=== PATIENT | male | born 1970 | race Two or more races ===

== ENCOUNTER 2025-04-25 13:41 | Inpatient (IN) | payer MEDICAID, OTHER ==
[~2025-04-25] VITALS: Ht 160 cm; Wt 76.4 kg
[2025-04-25] MEDS: ACETAMINOPHEN 325 MG TAB PO ONE ×2 (14:01→21:20)
--- NOTE | 2025-04-25 14:19 | ED.PDOC ---
History of Present Illness HPI Comments Patient is a 64-year-old male with no significant past medical history presented to the ED with a chief complaint of pain on urination. Patient reported that since the last 3-4 days he has been having chills and fever with body aches, burning pain urination but denies any hematuria. Patient reports that for the last about 1 year he has been having symptoms hesitancy, urgency, nocturia. Patient also reported of swelling in his right testicle which is painless. Patient denied nausea, vomiting, diarrhea and does not report of any cough or phlegm. He does report of having a kidney stone about 10 years ago. Chief Complaint: Urinary Time Seen by MD: 13:46 Allergies: Coded Allergies: NO KNOWN ALLERGIES (Unverified , 04/25/25) Past Medical History PAST MEDICAL HISTORY: Denies Surgical History: Denies all surgeries Family History Family History: Reviewed,noncontributory to illness, No family hx of Cancer, No family hx of DM, No family hx of Heart fern, No family hx of HTN, No family hx ofKidney fern, No family hx of Liver fern, No family hx of Lung fern, No family hx of Stroke Social History Smoker: Non-Smoker Alcohol: Other (Quit 2 months ago was a heavy alcoholic with 12 pack beer every day) Drugs: Denies Drug Use Lives In: Home Constitutional: reports: chills, fever, malaise, weakness EENTM: denies: blurred vision, double vision, ear bleeding, ear discharge, ear drainage, ear pain, ear ringing, eye pain, eye redness, hearing loss, mouth pain, mouth swelling, nasal discharge, nose bleeding, nose congestion, nose pain, photophobia, tearing, throat pain, throat swelling, voice changes, others Respiratory: denies: cough, hemoptysis, orthopnea, SOB at rest, shortness of breath, SOB with excertion, stridor, wheezing, others Cardiovascular: denies: chest pain, dizzy spells, diaphoresis, Dyspnea on exertion, edema, irregular heart beat, left arm pain, lightheadedness, palpitations, PND, syncope, others Gastrointestinal: denies: abdomen distended, abdominal pain, blood streaked bowels, constipated, diarrhea, dysphagia, difficulty swallowing, hematemesis, melena, nausea, poor appetite, poor fluid intake, rectal bleeding, rectal pain, vomiting, others Genitourinary: reports: burning, dysuria, frequency, testicle swelling, urgency Neurological: denies: dizziness, fainting, headache, left sided numbness, left sided weakness, numbness, paresthesia, pre-existing deficit, right sided numbness, right sided weakness, seizure, speech problems, tingling, tremors, weakness, others Musculoskeletal: reports: back pain Integumetry: denies: bruises, change in color, change in hair/nails, dryness, laceration, lesions, lumps, rash, wounds, others Allergic/Immunocompromised: denies: Difficulty Healing, Frequent Infections, Hives, Itching, others Hematologic/Lymphatic: denies: anemia, blood clots, easy bleeding, easy bruising, swollen glands, others Endocrine: denies: excessive hunger, excessive sweating, excessive thirst, excessive urination, flushing, intolerance to cold, intolerance to heat, unexplained weight gain, unexplained weight loss, others Psychiatric: denies: anxiety, bipolar disorder, depression, hopeless, panic disorder, schizophrenia, sleepless, suicidal, others Physical Exam General Appearance: Mild Distress HEENT: Normal ENT Inspection, Pharynx Normal, TMs Normal Neck: Full Range of Motion, Non-Tender, Normal, Normal Inspection Respiratory: Chest Non-Tender, Lungs Clear, No Accessory Muscle Use, No Respiratory Distress, Normal Breath Sounds Cardiovascular: No Edema, No JVD, No Murmur, Tachycardia Breast Exam: Deferred Gastrointestinal: No Organomegaly, Non Tender, No Pulsatile Mass, Normal Bowel Sounds, Soft Genitalia: Scrotum, Testicle (Swelling in the right side of the scrotum) Pelvic: Deferred Rectal: Deferred Extremities: No calf tenderness, Normal capillary refill, Normal inspection, Normal range of motion, Non-tender, No pedal edema Neurologic: Alert, solutions development analyst II-XII nml as Tested, No Motor Deficits, Normal Affect, Normal Mood, No Sensory Deficits Cerebellar Function: Normal Reflexes: Normal Skin: Dry, Normal Color, Warm Peripheral Pulses: 2+ carotid (R), 2+ carotid (L), 2+ femoral (R), 2+ femoral (L), 2+ dorsalis pedis (R), 2+ dorsalis pedis (L), 2+ Radial (R), 2+ Radial (L) Lymphatic: No Adenopathy Was a procedure done? Was a procedure done?: No Differential Dx Considerations may include: Acute cystitis, acute pyelonephritis, acute prostatitis, urosepsis X-Ray, Labs, Meds, VS Vital Signs Date Time Temp Pulse Resp B/P (MAP) Pulse Ox O2 Delivery O2 Flow Rate FiO2 04/25/25 14:01 102.5 04/25/25 13:50 102.5 113 22 153/99 (117) 96 102.5 Lab Test 04/25/25 14:30 Range/Units White Blood Count 12.3 H 4.4-10.8 10^3/uL Red Blood Count 4.71 4.5-5.90 10^6/uL Hemoglobin 14.5 13.5-17.5 g/dL Hematocrit 41.6 41.0-53.0 % Mean Corpuscular Volume 88.3 80.0-100.0 fL Mean Corpuscular Hemoglobin 30.8 28.0-32.0 pg Mean Corpuscular Hemoglobin Concent 34.8 32.0-36.0 g/dL Red Cell Distribution Width 16.3 H 11.8-14.3 % Platelet Count 60 L 140-450 10^3/uL Mean Platelet Volume 8.3 6.9-10.8 fL Neutrophils (%) (Auto) 79.5 37.0-80.0 % Lymphocytes (%) (Auto) 11.5 10.0-50.0 % Monocytes (%) (Auto) 8.5 0.0-12.0 % Eosinophils (%) (Auto) 0.1 0.0-7.0 % Basophils (%) (Auto) 0.4 0.0-2.0 % Neutrophils # (Auto) 9.8 H 1.6-8.6 10 ^3/uL Lymphocytes # (Auto) 1.4 0.4-5.4 10 ^3/uL Monocytes # (Auto) 1.0 0-1.3 10 ^3/uL Eosinophils # (Auto) 0 0-0.8 10 ^3/uL Basophils # (Auto) 0.1 0-0.2 10 ^3/uL Nucleated Red Blood Cells 0.2 % Platelet Estimate Pending Sodium Level 134 L 136-145 mmol/L Potassium Level 3.8 3.5-5.1 mmol/L Chloride Level 102 98-107 mmol/L Carbon Dioxide Level 23 20-31 mmol/L Anion Gap 9 5-15 Blood Urea Nitrogen 11 9-23 mg/dL Creatinine 1.02 0.700-1.30 mg/dL Glomerular Filtration Rate Calc 87 >90 mL/min BUN/Creatinine Ratio 10.8 10.0-20.0 Serum Glucose 105 74-106 mg/dL Lactic Acid Level 1.3 0.4-2.0 mmol/L Calcium Level 9.0 8.7-10.4 mg/dL Current Medications Medications (Trade) Dose Ordered Sig/Josh Route Start Time Stop Time Status Last Admin Acetaminophen (Tylenol Tablet) 650 mg ONCE ONCE PO 04/25/25 14:00 04/25/25 14:01 DC 04/25/25 14:01 Patient 54-year-old male with no significant past medical history presented to the ED with a chief complaint of pain on urination associated with chills, fever, body aches for the last 3-4 days. On arrival patient was from to be tachycardic with a heart rate 115, BP 153/99 mmHg, temperature 102.5F . Initial labs including CBC, BMP, lactic acid levels, blood culture and urine culture were ordered. Testicular ultrasound was done which showed large right hydrocele CBC showed elevated white count with a left shift, patient continued to report of feeling weak and having body aches. 1 L of IV fluid was given and 1 g of IV ceftriaxone was given. Patient requires further inpatient management for his current symptoms and he agrees with the plan. Time of 1ST Reevaluation: 15:20 Reevaluation 1ST: Improved Time of 2ND Reevaluation: 16:20 Reevaluation 2ND: Unchanged Patient Education/Counseling: Diagnosis, Treatment Family Education/Counseling: No Family Present SEPSIS Sepsis Screen Physician Orders Complete Blood Count (04/25/25 14:06) Urinalysis (04/25/25 14:06) Blood Culture (04/25/25 14:06) Urine Bacterial Culture (04/25/25 14:06) Testicular Ultrasound (04/25/25 14:06) Rbc Morphology (04/25/25 14:30) Vital Signs Date Time Temp Pulse Resp B/P (MAP) Pulse Ox O2 Delivery O2 Flow Rate FiO2 04/25/25 14:01 102.5 04/25/25 13:50 102.5 113 22 153/99 (117) 96 102.5 Laboratory Tests Test 04/25/25 14:30 Lactic Acid Level 1.3 mmol/L (0.4-2.0) White Blood Count 12.3 10^3/uL (4.4-10.8) H Medications Medications Dose Ordered Sig/Josh Route Start Time Stop Time Status Last Admin Dose Admin Acetaminophen 650 mg ONCE ONCE PO 04/25/25 14:00 04/25/25 14:01 DC 04/25/25 14:01 Departure 1 Departure Time of Disposition: 16:25 Impression: Primary Impression: Sepsis Additional Impressions: UTI (urinary tract infection) Acute cystitis Disposition: ADMITTED INPATIENT Condition: Fair Critical Care Note Critical Care Time?: No Stability Stability form required: No Heart Score Heart Score: Heart Score Response (Comments) Value History N/A 0 EKG N/A 0 Age N/A 0 Risk Factors N/A 0 Troponin N/A 0 Total 0 ARNOLDO WEEMS RESIDENT Apr 25, 2025 14:19
[2025-04-25 14:47] LABS: Hemoglobin 14.5 g/dL (13.5-17.5)
[2025-04-25 14:50] LABS: Hematocrit 41.6 % (41.0-53.0); Mean Corpuscular Hemoglobin 30.8 pg (28.0-32.0); Mean Corpuscular Volume 88.3 fL (80.0-100.0); Nucleated Red Blood Cells % 0.2 %
[2025-04-25 14:53] LABS: Chloride 102 mmol/L (98-107); Potassium 3.8 mmol/L (3.5-5.1)
[2025-04-25 14:54] LABS: Anion Gap 9 (5-15); Calcium 9.0 mg/dL (8.7-10.4); Carbon Dioxide 23 mmol/L (20-31)
[2025-04-25 14:59] LABS: BUN/Creatinine Ratio 10.8 (10.0-20.0); Blood Urea Nitrogen 11 mg/dL (9-23); Glucose 105 mg/dL (74-106)
[2025-04-25 15:01] LABS: Sodium 134 mmol/L (136-145)
--- NOTE | 2025-04-25 15:21 | DVH ---
Procedure: US TESTICULAR ULTRASOUND Study Date and Requested Time: 04/25/2025 02:28 PM History: testicular swelling Comparison: None Technique: Multiple high-resolution grayscale images of scrotal contents obtained. Color and spectral Doppler used for evaluation of testicular blood flow. Findings: Right testicle measures 6.3 x 2.1 x 2.7 cm with normal contours. 0.4 cm echogenic structure abuttin g the right testicle. Right epididymis is not visualized. Left testicle measures 4.1 x 1.7 x 3 cm with homogenous echotexture and normal contours. Left epididy mal head measures 0.9 cm with a 0.4 cm cyst . Normal testicular color and spectral Doppler flow bilaterally. No evidence of testicular torsion. Lar ge right hydrocele with internal debris. Trace left hydrocele. Impression: Large right-sided hydrocele with internal debris. Trace left hydrocele. The right epididymis is not visualized. 0.4 cm echogenic structure abutting the right testicle which may represent a testicular appendage wit h a lesion not excluded. 0.4 cm left epididymal head cyst
[2025-04-25 17:26] LABS: Anisocytosis Slight
[2025-04-25] MEDS: SODIUM CHLORIDE 0.9% 1,000 ML IV ONE (18:17)
[2025-04-25] MEDS: cefTRIAXone 1GM/50ML D5W 50 ML IV ONE (18:21)
[2025-04-25] MEDS ORDERED: MORPHINE SULFATE INJ 2 MG/ml SYRG IV PRN (21:00)
[2025-04-25] MEDS ORDERED: NITROGLYCERIN 0.4 MG SL TAB SL PRN (21:00)
--- NOTE | 2025-04-25 22:44 | DVHHP2 ---
History of Present Illness History of Present Illness This is a 54-year-old male with no significant past medical history except alcohol use disorder came to ED with the complaint of fever , headache, weakness, right scrotal pain which started last night, 7/10 intensity, aggravated during urination and lifting up scrotum, try ibuprofen which helps a little. Patient denies any blood mixed with urine, no recent history of sexual exposure, no urethral discharge or injury/ trauma. Patient noted right scrotal swelling for 3 month which is gradually increase day by day. Patient currently [facility] for last 2 [facility]. Denies any chest pain, SOB, cough, abdominal pain, diarrhea, constipation. PAST MEDICAL HISTORY: none Surgical History: None Family History:noncontributory Social History: Non-Smoker, Alcohol (Quit 2 months ago was a heavy alcoholic with 12 pack beer every day) currently on rehab Drugs: Denies Drug Use Allergy: No known allergy pcp: unknown Review of Systems Constitutional: Yes: Fever, Chills, Weakness, Malaise Eyes: No: Pain, Vision change, Conjunctivae inflammation, Eyelid inflammation, Other, Redness ENT: No: Ear pain, Ear discharge, Nose pain, Nose discharge, Nose congestion, Mouth pain, Mouth swelling, Throat pain, Throat swelling, Other Respiratory: No: Cough, Dry, Shortness of breath, SOB with excertion, Wheezing, Hemoptysis, Pleuritic Pain, Sputum, Wheezing, Other Cardiovascular: No: Chest Pain, Palpitations, Orthopnea, Paroxysmal Noc. Dyspnea, Edema, Lt Headedness, Other Gastrointestinal: No: Nausea, Vomiting, Abdominal Pain, Diarrhea, Constipation, Melena, Hematochezia, Other Genitourinary: Dysuria, Other (rt scrotal swelling) Musculoskeletal: No: other, neck pain, shoulder pain, arm pain, back pain, hand pain, leg pain, foot pain Skin: No: Rash, Lesions, Jaundice, Bruising, Other Neurological: No: Weakness, Numbness, Incoordination, Change in speech, Confusion, Seizures, Other Allergies: Coded Allergies: NO KNOWN ALLERGIES (Unverified , 04/25/25) Exam Vital Signs Vital Signs Date Time Temp Pulse Resp B/P (MAP) Pulse Ox O2 Delivery O2 Flow Rate FiO2 04/25/25 21:11 99.4 78 21 125/79 (94) 98 99.4 04/25/25 18:23 Room Air General Appearance: Alert, Oriented X3, Cooperative HEENT: Atraumatic, PERRLA, EOMI Respiratory: Clear to auscultation, Normal air movement Cardiovascular: Regular rate, Normal S1, Normal S2 Abdominal: Normal bowel sounds, Soft, No tenderness, No hepatospenomegaly, Other (Right sided scrotal swelling) Extremities: No clubbing, No cyanosis, No edema, Normal pulses Skin: No rashes, No breakdown, No significant lesion Neuro: Normal gait, Normal speech Labs/Xrays Labs Test 04/25/25 14:30 04/25/25 14:03 Range/Units White Blood Count 12.3 H 4.4-10.8 10^3/uL Red Blood Count 4.71 4.5-5.90 10^6/uL Hemoglobin 14.5 13.5-17.5 g/dL Hematocrit 41.6 41.0-53.0 % Mean Corpuscular Volume 88.3 80.0-100.0 fL Mean Corpuscular Hemoglobin 30.8 28.0-32.0 pg Mean Corpuscular Hemoglobin Concent 34.8 32.0-36.0 g/dL Red Cell Distribution Width 16.3 H 11.8-14.3 % Platelet Count 60 L 140-450 10^3/uL Mean Platelet Volume 8.3 6.9-10.8 fL Neutrophils (%) (Auto) 79.5 37.0-80.0 % Lymphocytes (%) (Auto) 11.5 10.0-50.0 % Monocytes (%) (Auto) 8.5 0.0-12.0 % Eosinophils (%) (Auto) 0.1 0.0-7.0 % Basophils (%) (Auto) 0.4 0.0-2.0 % Neutrophils # (Auto) 9.8 H 1.6-8.6 10 ^3/uL Lymphocytes # (Auto) 1.4 0.4-5.4 10 ^3/uL Monocytes # (Auto) 1.0 0-1.3 10 ^3/uL Eosinophils # (Auto) 0 0-0.8 10 ^3/uL Basophils # (Auto) 0.1 0-0.2 10 ^3/uL Nucleated Red Blood Cells 0.2 % Platelet Estimate Decreased Anisocytosis (manual) Slight Sodium Level 134 L 136-145 mmol/L Potassium Level 3.8 3.5-5.1 mmol/L Chloride Level 102 98-107 mmol/L Carbon Dioxide Level 23 20-31 mmol/L Anion Gap 9 5-15 Blood Urea Nitrogen 11 9-23 mg/dL Creatinine 1.02 0.700-1.30 mg/dL Glomerular Filtration Rate Calc 87 >90 mL/min BUN/Creatinine Ratio 10.8 10.0-20.0 Serum Glucose 105 74-106 mg/dL Lactic Acid Level 1.3 0.4-2.0 mmol/L Calcium Level 9.0 8.7-10.4 mg/dL Assessment/Plan Assessment/Plan # Sepsis due to UTI -Patient came to ED with fever, headache, dysuria, right scrotal pain and swelling -Patient become tachycardic heart rate >100, T-102.5, leukocytosis with left shift, WBC 12.3 -In ED patient received ceftriaxone1 g IV, NSS, Tylenol -UA-turbid, blood 2+, RBC2+ , WBC 45, bacteria -few -Lactic acid 1.3 -NSS 100 cc/hour IV -Ceftriaxone 1 g IV daily -Tylenol 650 mg p.o. q.6 p.r.n. -Blood culture and urine culture will follow -UDS, A1c, lipid profile, THS, folic acid level ordered - Monitor CBC for infection # Right-sided scrotal swelling due to hydrocele -ultrasound testes: Large right-sided hydrocele with internal debris. Trace left hydrocele. The right epididymis is not visualized. 0.4 cm echogenic structure abutting the right testicle which may represent a testicular appendage with a lesion not excluded. 0.4 cm left epididymal head cyst. -urology consult # Alcohol use disorders -History of alcohol use , currently on rehab for last 2 months # Thrombocytopenia likely alcohol use -Platelet count 60 -No signs symptoms of active bleeding -Monitor CBC # Obesity -BMI 29.0 -Life style modification -lipid profile Diet: Regular GI prophylaxis: Pantoprazole 40 mg p.o. daily DVT prophylaxis: Patient is ambulating Goals of care discussions, more than24 minute spent, full code status. Discussed with Dr. Bradley Plan discussed with: Patient, Other (Nurse) My Orders Orders - DAVID SCALES RESIDENT Procedure Category Date Status Time Admit ADMIT 04/25/25 Transmitted 20:57 Nitroglycerin PHA 04/25/25 Transmitted Sublingual (Ntrostat 21:00 Morphine Sulfate PHA 04/25/25 Transmitted Injection 21:00 Date of Service: Apr 25, 2025 Billing Provider: QING BRADLEY MD Common Visit Codes: 32571-NPHZKAD INP/OBS CARE (HIGH) Secondary Visit Codes: 41226-[id number] CARE PLAN 30 MINUTES DAVID SCALES RESIDENT Apr 25, 2025 22:43
[2025-04-25 22:47] LABS: Urine Amorphous Crystal FEW /hpf (None Seen); Urine Protein, UAD Negative (Negative)
[2025-04-26] MEDS: ACETAMINOPHEN 325 MG TAB PO PRN (04:49)
--- NOTE | 2025-04-26 06:18 | DVH ---
CHEST RADIOGRAPH Indication: Septic Technique: Single frontal view of the chest was obtained Comparison: None FINDINGS: Lines and Tubes: None Lungs: No focal consolidation. Pleura: No effusion. No pneumothorax. Cardiomediastinal contours: Unremarkable Bones: No acute osseous abnormality. IMPRESSION: 1. No acute cardiopulmonary disease.
[2025-04-26 07:18] LABS: Hematocrit 44.0 % (41.0-53.0); Hemoglobin 15.0 g/dL (13.5-17.5); Mean Corpuscular Hemoglobin 30.2 pg (28.0-32.0); Mean Corpuscular Volume 88.7 fL (80.0-100.0); Nucleated Red Blood Cells % 0.2 %
[2025-04-26 07:43] LABS: Triglycerides 75 mg/dL (< 150)
[2025-04-26 07:46] LABS: Cholesterol 124 mg/dL (< 200); HDL Cholesterol 46 mg/dL (40-59)
[2025-04-26] MEDS: FAMOTIDINE 20 MG TAB PO SCH (08:09)
[2025-04-26] MEDS: cefTRIAXone 1GM/50ML D5W 50 ML IV SCH (08:24)
[2025-04-26 08:47] VITALS: BP 116/79; PULSE 71; RESP 18; TEMP 98.1; O2SAT 99
[2025-04-26 08:51] VITALS: BP 116/76; PULSE 71; RESP 18; TEMP 98.1; O2SAT 99
--- NOTE | 2025-04-26 10:07 | DVHINCON2 ---
Date of service: Apr 26, 2025 Referring Physician Hospitalist Reason for Consultation "Right scrotal swelling" (HYDROCELE) History of Present Illness 64-year-old male with ALCOHOLISM admitted to [facility] with a chief complaint of pain on urination and fever to 102.5F. Patient reported that since the last 3-4 days he has been having chills and fever with body aches, burning pain urination but denies any hematuria. Patient reports that for the last about 1 year he has been having symptoms hesitancy, urgency, nocturia. Patient also reported of swelling in his right testicle which is painless- US confirmed large right hydrocele. Patient denied nausea, vomiting, diarrhea and does not report of any cough or phlegm. He does report of having a kidney stone about [address] Scan ordered. Chief Complaint: Urinary Allergies: Coded Allergies: NO KNOWN ALLERGIES (Unverified , 04/25/25) Past Medical History Alcoholism Social History Smoker: Non-Smoker Alcohol: Other (Quit 2 months ago was a heavy alcoholic with 12 pack beer every day) Drugs: Denies Drug Use Lives In: Home Allergies: Coded Allergies: NO KNOWN ALLERGIES (Unverified , 04/25/25) Current Medications Current Medications Medications (Trade) Dose Ordered Sig/Josh Route PRN Reason Start Time Stop Time Status Last Admin Nitroglycerin (Ntrostat Sublingual) 0.4 mg Q5MINP PRN SL FOR CHEST PAIN 04/25/25 21:00 Morphine Sulfate 2 mg Q30M PRN IV FOR CHEST PAIN 04/25/25 21:00 Acetaminophen (Tylenol Tablet) 650 mg Q4HP PRN PO MILD PAIN (1-3 PAIN SCALE) 04/26/25 00:00 04/26/25 04:49 Famotidine (Pepcid Tablet) 40 mg DAILY PO 04/26/25 10:00 04/26/25 08:09 Ceftriaxone Sodium 50 ml @ 100 mls/hr DAILY@09 IV 04/26/25 09:00 04/26/25 08:24 Review of Systems Constitutional: reports: chills, fever, malaise, weakness EENTM: denies: blurred vision, double vision, ear bleeding, ear discharge, ear drainage, ear pain, ear ringing, eye pain, eye redness, hearing loss, mouth pain, mouth swelling, nasal discharge, nose bleeding, nose congestion, nose pain, photophobia, tearing, throat pain, throat swelling, voice changes, others Respiratory: denies: cough, hemoptysis, orthopnea, SOB at rest, shortness of breath, SOB with excertion, stridor, wheezing, others Cardiovascular: denies: chest pain, dizzy spells, diaphoresis, Dyspnea on exertion, edema, irregular heart beat, left arm pain, lightheadedness, palpitations, PND, syncope, others Gastrointestinal: denies: abdomen distended, abdominal pain, blood streaked bowels, constipated, diarrhea, dysphagia, difficulty swallowing, hematemesis, melena, nausea, poor appetite, poor fluid intake, rectal bleeding, rectal pain, vomiting, others Genitourinary: reports: burning, dysuria, frequency, scrotal swelling, urgency Neurological: denies: dizziness, fainting, headache, left sided numbness, left sided weakness, numbness, paresthesia, pre-existing deficit, right sided numbness, right sided weakness, seizure, speech problems, tingling, tremors, weakness, others Musculoskeletal: reports: back pain Integumetry: denies: bruises, change in color, change in hair/nails, dryness, laceration, lesions, lumps, rash, wounds, others Allergic/Immunocompromised: denies: Difficulty Healing, Frequent Infections, Hives, Itching, others Hematologic/Lymphatic: denies: anemia, blood clots, easy bleeding, easy bruising, swollen glands, others Endocrine: denies: excessive hunger, excessive sweating, excessive thirst, excessive urination, flushing, intolerance to cold, intolerance to heat, unexplained weight gain, unexplained weight loss, others Psychiatric: denies: anxiety, bipolar disorder, depression, hopeless, panic disorder, schizophrenia, sleepless, suicidal, others Vital Signs Vital Signs Date Time Temp Pulse Resp B/P (MAP) Pulse Ox O2 Delivery O2 Flow Rate FiO2 04/26/25 08:49 61 18 127/65 (85) 99 04/26/25 04:51 98.7 98.7 04/25/25 18:23 Room Air Physical Exam General Appearance: Mild Distress HEENT: Normal ENT Inspection, Pharynx Normal, TMs Normal Neck: Full Range of Motion, Non-Tender, Normal, Normal Inspection Respiratory: Chest Non-Tender, Lungs Clear, No Accessory Muscle Use, No Respiratory Distress, Normal Breath Sounds Cardiovascular: No Edema, No JVD, No Murmur, Tachycardia Breast Exam: Deferred Gastrointestinal: No Organomegaly, Non Tender, No Pulsatile Mass, Normal Bowel Sounds, Soft Genitalia: Right hydrocele Pelvic: Deferred Rectal: Deferred Extremities: No calf tenderness, Normal capillary refill, Normal inspection, Normal range of motion, Non-tender, No pedal edema Neurologic: 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, 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, No Motor Deficits, Normal Affect, Normal Mood, No Sensory Deficits Cerebellar Function: Normal Reflexes: Normal Skin: Dry, Normal Color, Warm Peripheral Pulses: 2+ carotid (R), 2+ carotid (L), 2+ femoral (R), 2+ femoral (L), 2+ dorsalis pedis (R), 2+ dorsalis pedis (L), 2+ Radial (R), 2+ Radial (L) Lymphatic: No Adenopathy Labs/Diagnostic Data Labs Test 04/26/25 09:45 04/26/25 06:51 04/26/25 06:38 04/25/25 14:30 Range/Units White Blood Count 11.2 H 4.4-10.8 10^3/uL Red Blood Count 4.96 4.5-5.90 10^6/uL Hemoglobin 15.0 13.5-17.5 g/dL Hematocrit 44.0 41.0-53.0 % Mean Corpuscular Volume 88.7 80.0-100.0 fL Mean Corpuscular Hemoglobin 30.2 28.0-32.0 pg Mean Corpuscular Hemoglobin Concent 34.1 32.0-36.0 g/dL Red Cell Distribution Width 16.5 H 11.8-14.3 % Platelet Count 59 L 140-450 10^3/uL Mean Platelet Volume 8.2 6.9-10.8 fL Neutrophils (%) (Auto) 79.1 37.0-80.0 % Lymphocytes (%) (Auto) 11.9 10.0-50.0 % Monocytes (%) (Auto) 8.6 0.0-12.0 % Eosinophils (%) (Auto) 0.1 0.0-7.0 % Basophils (%) (Auto) 0.3 0.0-2.0 % Neutrophils # (Auto) 8.9 H 1.6-8.6 10 ^3/uL Lymphocytes # (Auto) 1.3 0.4-5.4 10 ^3/uL Monocytes # (Auto) 1.0 0-1.3 10 ^3/uL Eosinophils # (Auto) 0 0-0.8 10 ^3/uL Basophils # (Auto) 0 0-0.2 10 ^3/uL Nucleated Red Blood Cells 0.2 % Hemoglobin A1c 5.2 <5.7 % A1C B-Type Natriuretic Peptide 9.82 0-100 pg/mL Vitamin B12 Level 667 211-911 pg/mL Vitamin D 25-Hydroxy 109.2 H 30.0-100 ng/mL Folic Acid 18.99 >5.38 ng/mL Thyroid Stimulating Hormone (TSH) 1.01 0.55-4.78 uIU/mL Triglycerides Level 75 < 150 mg/dL Cholesterol Level 124 < 200 mg/dL LDL Cholesterol 60 < 100 mg/dL HDL Cholesterol 46 40-59 mg/dL Platelet Estimate Decreased Anisocytosis (manual) Slight Sodium Level 134 L 136-145 mmol/L Potassium Level 3.8 3.5-5.1 mmol/L Chloride Level 102 98-107 mmol/L Carbon Dioxide Level 23 20-31 mmol/L Anion Gap 9 5-15 Blood Urea Nitrogen 11 9-23 mg/dL Creatinine 1.02 0.700-1.30 mg/dL Glomerular Filtration Rate Calc 87 >90 mL/min BUN/Creatinine Ratio 10.8 10.0-20.0 Serum Glucose 105 74-106 mg/dL Lactic Acid Level 1.3 0.4-2.0 mmol/L Calcium Level 9.0 8.7-10.4 mg/dL Test 04/25/25 14:03 Range/Units Urine Color Light-yellow Yellow Urine Clarity Turbid H Clear Urine pH 6.0 5.0-9.0 Urine Specific [place] 1.010 1.001-1.035 Urine Protein Negative Negative Urine Ketones Negative Negative Urine Blood 2+ H Negative /uL Urine Nitrite Negative Negative Urine Bilirubin Negative Negative Urine Urobilinogen 2 H Negative mg/dL Urine Leukocyte Esterase 3+ Negative /uL Urine RBC 14 0 - 3 /hpf Urine Microscopic WBC 45 H 0-3 /HPF Urine Squamous Epithelial Cells None seen <5 /hpf Urine Amorphous Crystals Few None Seen /hpf Urine Bacteria Few H None Seen /hpf Urine Glucose Normal Normal mg/dL PATIENT: KAREN YANT: [id number] UNIT: [id number] : 1970 LOC: ER ROOM / BED: / AGE / SEX: 54 / M ADM STATUS: REG ER SERVICE 1406 ORDERING PHYSICIAN: ARNOLDO WEEMS RESIDENT PROCEDURE(s): TESUS - TESTICULAR ULTRASOUND REASON: testicular swelling ORDER NUMBER(s): [id number], ACCESSION NUMBER(s): [id number] Procedure: US TESTICULAR ULTRASOUND Study Date and Requested Time: 04/25/2025 02:28 PM History: testicular swelling Comparison: None Technique: Multiple high-resolution grayscale images of scrotal contents obtained. Color and spectral Doppler used for evaluation of testicular blood flow. Findings: Right testicle measures 6.3 x 2.1 x 2.7 cm with normal contours. 0.4 cm echogenic structure abutting the right testicle. Right epididymis is not visualized. Left testicle measures 4.1 x 1.7 x 3 cm with homogenous echotexture and normal contours. Left epididymal head measures 0.9 cm with a 0.4 cm cyst . Normal testicular color and spectral Doppler flow bilaterally. No evidence of testicular torsion. Large right hydrocele with internal debris. Trace left hydrocele. Impression: Large right-sided hydrocele with internal debris. Trace left hydrocele. The right epididymis is not visualized. 0.4 cm echogenic structure abutting the right testicle which may represent a testicular appendage with a lesion not excluded. 0.4 cm left epididymal head cyst ATED BY: RUBIA ZAMUDIO DO DICTATED DATE/TIME: 04/25/25 151 SIGNED BY: RUBIA ZAMUDIO DO SIGNED DATE/TIME: 04/25/251518 CC: Assessment Large right hydrocele Hematuria Fever OAB (frequency, urgency and nocturia) Dysuria Plan/Recommendation Brian to gravity Urine culture ordered Blood culture for fever Chest xray Normal CT Scan AP NC Right hydrocele may be treated conservatively or hydrocelectomy as outpatient. PSA as outpatient (may be falsely elevated if UTI) Plan discussed with: Patient, Other LIZBETH ALEX MD Apr 26, 2025 10:07
--- NOTE | 2025-04-26 10:39 | DVHPNRES ---
Progress Note Date Seen: Apr 26, 2025 Resident Creating Document: CHASTITYLUISAJOSHUALOY Waldrop RESIDENT Has the PT tested + for MRSA If YES, has PT been informed?: No Medical Necessity Reason Pt with a Central, PICC or Fol: No Subjective Review of Systems This is a 54-year-old male with no significant past medical history came to ED with the complaint of fever, weakness, right scrotal pain which worsened two days ago. Pain is 7/10 intensity, associated with burning, painful micturition, fever, 2-3 lb weight loss. Scrotal pain worsens while standing up and decreases with sitting. Associated increased frequency of micturition. The swelling in the scrotum started eight months ago and gradually increased in size. Since last one month he has been having on and off pain which has worsened since last two days. He has not noticed any change in the color. try ibuprofen which helps a little. Patient denies any blood mixed with urine, no recent history of sexual exposure (last sexual encounter 4 years ago), no urethral discharge or injury/ trauma, no painful ejaculations. Patient noted right scrotal swelling for 3 month which is gradually increase day by day. [facility]. Denies any chest pain, SOB, cough, abdominal pain, diarrhea, constipation, penile discharge, heavy lifting, problem with ejaculation. He is not sexually active, last sexual encounter 4 years ago. 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 He was managed with IV fluids, antibiotics, pain medication. Blood culture and urine culture ordered. Ultrasound shows right large hydrocele, trace left hydrocele, 0.4 cm echogenic structure abutting right testicle, 0.4 cm epididymal head cyst. We will monitor CBC for infection. Lactic Acid 1.3, increased total bilirubin, total protein, no growth on blood culture. 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 HEENT: Denies changes in vision and hearing. Respiratory: Denies shortness of breath and cough Cardiovascular: No complaints. GI: No vomiting, nausea, diarrhea. : Scrotal swelling, pain, associated with burning micturition, increased frequency Musculoskeletal: Denies myalgias and joint pain Neurological: Denies dizziness, headache, vision or hearing problems Objective vital signs Vital Sign Date Time Temp Pulse Resp B/P (MAP) Pulse Ox O2 Delivery O2 Flow Rate FiO2 04/26/25 08:49 61 18 127/65 (85) 99 04/26/25 04:51 98.7 98.7 04/25/25 18:23 Room Air Total Intake and Output 04/25/25 04/25/25 04/26/25 15:00 23:00 07:00 Intake Total 1050 ml Balance 1050 ml medications Current Medications Medications Dose Ordered Sig/Josh Route Start Time Stop Time Status Last Admin Dose Admin Nitroglycerin 0.4 mg Q5MINP PRN SL 04/25/25 21:00 Morphine Sulfate 2 mg Q30M PRN IV 04/25/25 21:00 Acetaminophen 650 mg Q4HP PRN PO 04/26/25 00:00 04/26/25 04:49 650 MG Famotidine 40 mg DAILY PO 04/26/25 10:00 04/26/25 08:09 40 MG Ceftriaxone Sodium 50 ml @ 100 mls/hr DAILY@09 IV 04/26/25 09:00 04/26/25 08:24 100 MLS/HR Examination General examination- He is awake, alert, oriented. HEENT- PEERLA, no acute nasal discharge Cardiovascular- no abnormal heart sounds. Respiratory- lungs are clear to auscultation. Gastrointestinal- Nontender, nondistended Musculoskeletal- No acute joint swelling or tenderness or redness Extremity examination- no pitting edema. - asymmetrical scrotal swelling on right side. No penile discharge or mass seen. Skin color normal. Right testicle not palpable. Prehn sign negative. Left testicle soft. No lymph nodes palpable. Mild tenderness on posterior aspect of scrotum. No illumination on touch test. Neurological- Cranial nerves intact, no acute dysarthria or dysphagia laboratory and microbiology Laboratory Tests 04/26/25 06:51 04/25/25 14:30 Test 04/25/25 14:30 Range/Units Serum Glucose 105 74-106 mg/dL Problem List/Assessment/Plan Problem List/Assessment/Plan #Large right hydrocele #Infected hydrocele, possible #Testicular tumor, possible #Hematuria -Ultrasound testes shows large right-sided hydrocele with internal debris. Trace left hydrocele. 0.4 cm echogenic structure abutting the right testicle which may represent a testicular appendage with a lesion not excluded. 0.4 cm left epididymal head cyst. -Ordered Chlamydia, gonorrhoea testing -AFP, LDH ordered #Sepsis due to UTI possible #Leukocytosis -Tachycardia, tachypnea, fever on admission -Urine analysis showed turbid urine, increased WBC count, 2+ blood, few bacteria -Urine, blood sent for culture -Start IV ceftriaxone 1 g daily -Oral Acetaminophen as needed for pain control #Thrombocytopenia #Alcoholic liver disease, possible -History of alcohol use, currently on rehab for last 2 months -Platelet count 60 -No signs symptoms of active bleeding -Monitor CBC -Ordered Liver profile # Obesity -BMI 29.0 -Life style modification -Lipid profile GI prophylaxis: Pantoprazole 40 mg p.o. daily DVT prophylaxis: Patient is ambulating Goals of care discussions, more than 35 minute spent, full code status. Plan discussed with Dr. Keen Plan discussed with: Patient Date of Service: Apr 26, 2025 Billing Provider: CHRISTY LANE MD Common Visit Codes: [id number] INP/OBS CARE(HIGH) LOY MONTANEZ RESIDENT Apr 26, 2025 10:[address] MD May 01, 2025 01:00
--- NOTE | 2025-04-26 12:05 | DVH ---
Exam: CT CT AB PEL WO CON-NO ORAL OR IV History: hematuria Comparison Study: None Technique: Multidetector spiral CT of the abdomen and pelvis was performed from lung bases to pubic symphysis. Imaging was performed without IV contrast. Axial, coronal and sagittal multiplanar reform ats were obtained from the axial data set by the technologist. Radiation dose : Abdomen/Pelvis: CTDIvol 7.19 mGy, DLP 550.46 mGy*cm. Findings: Limited by motion. Evaluation of solid organs is limited due to lack of intravenous contrast use. Lung Bases: Calcified granuloma left lung base. Noncalcified nodule left lung base measuring less th an 6 mm. Atelectasis and scarring in the lung bases. Liver: The liver is normal in size. No focal lesions. Gallbladder and biliary Tree: Unremarkable Spleen: Enlarged Pancreas: The pancreas is grossly normal in appearance. Adrenal Glands: Unremarkable Kidneys: Kidneys are grossly normal without calculi or hydronephrosis. Bladder: Grossly unremarkable for degree of distention. Bowel: The stomach is grossly normal in appearance. Small bowel and colon are normal in caliber and d istribution. Normal appendix is visualized in the right lower quadrant without findings of appendicit is. Ascites: Mild fluid and stranding in both paracolic gutters. Lymphadenopathy: No mesenteric, retroperitoneal or periportal lymphadenopathy. Abdominal wall and Mesentery: Mild fluid and stranding in both paracolic gutters. Vasculature: The visualized abdominal aorta is normal in size and caliber. Evaluation of abdominal a nd pelvic vessels is limited due to lack of intravenous contrast. Pelvic Organs: Large right hydrocele. Musculoskeletal: No aggressive focal bony lesions, acute fractures or dislocation. IMPRESSION: 1. Limited by motion and lack of intravenous contrast. No hydronephrosis or nephrolithiasis. Fluid an d stranding in the bilateral paracolic gutters is nonspecific. Could be related to colitis. Consider follow-up exam with intravenous contrast. Calcified granuloma and noncalcified nodule in the left janet g base. Consider dedicated chest CT. Splenomegaly. Large right hydrocele. Radiation optimization: All CT scans at this facility use at least one of these dose optimization raj hniques: Automated exposure control mA and/or kV adjustment per patient size (includes targeted exams where dose is matched to clinical indication) or iterative reconstruction. HS:Y
[2025-04-26 12:52] LABS: Alanine Aminotransferase 12.0 U/L (7-40); Albumin 4.4 g/dL (3.2-4.8); Alkaline Phosphatase 92.0 U/L (46-116)
[2025-04-26 12:53] LABS: Bilirubin, Direct 1.0 mg/dL (<0.3); Bilirubin, Total 2.5 mg/dL (0.2-1.0); Total Protein 8.6 g/dL (5.7-8.2)
[2025-04-26 17:00] VITALS: BP 112/71; PULSE 88; RESP 16; TEMP 100.6; O2SAT 98
[2025-04-26 17:50] VITALS: BP 112/71; PULSE 88; RESP 16; TEMP 100.6; O2SAT 98
[2025-04-26 20:00] VITALS: PULSE 74; RESP 18; O2SAT 97
[2025-04-26 21:00] VITALS: BP 114/76; PULSE 74; RESP 18; TEMP 98.4; O2SAT 97
[2025-04-27 01:00] VITALS: BP 110/75; PULSE 60; RESP 18; TEMP 98.7; O2SAT 99
[2025-04-27 05:00] VITALS: BP 130/87; PULSE 76; RESP 18; TEMP 98.7; O2SAT 100
[2025-04-27 06:49] LABS: Albumin 3.5 g/dL (3.2-4.8); Alkaline Phosphatase 77 U/L (46-116); Anion Gap 9 (5-15); BUN/Creatinine Ratio 17.9 (10.0-20.0); Blood Urea Nitrogen 15 mg/dL (9-23); Calcium 9.2 mg/dL (8.7-10.4); Carbon Dioxide 24 mmol/L (20-31); Glucose 94 mg/dL (74-106); Potassium 3.8 mmol/L (3.5-5.1); Sodium 142 mmol/L (136-145); Total Protein 6.9 g/dL (5.7-8.2)
[2025-04-27 06:52] LABS: Alanine Aminotransferase < 9 U/L (7-40); Bilirubin, Total 1.3 mg/dL (0.2-1.0); Chloride 109 mmol/L (98-107)
[2025-04-27 07:14] LABS: Hematocrit 39.7 % (41.0-53.0); Hemoglobin 13.6 g/dL (13.5-17.5); Mean Corpuscular Hemoglobin 30.3 pg (28.0-32.0)
[2025-04-27 07:17] LABS: Mean Corpuscular Volume 88.0 fL (80.0-100.0); Nucleated Red Blood Cells % 0.2 %
[2025-04-27 09:00] VITALS: BP 116/76; PULSE 71; RESP 18; TEMP 98.1; O2SAT 99
--- NOTE | 2025-04-27 11:11 | DVHPNRES ---
Progress Note Date Seen: Apr 27, 2025 Resident Creating Document: LISSETHLOY RESIDENT Has the PT tested + for MRSA If YES, has PT been informed?: No Medical Necessity Reason Pt with a Central, PICC or Fol: No Subjective Review of Systems Kirk Flowers is a 54-year-old male with no significant past medical history came to ED with the complaint of fever, weakness, right scrotal pain which worsened two days ago. Pain is 7/10 intensity, associated with burning, painful micturition, fever, 2-3 lb weight loss. Scrotal pain worsens while standing up and decreases with sitting. Associated increased frequency of micturition. The swelling in the scrotum started eight months ago and gradually increased in size. Since last one month he has been having on and off pain which has worsened since last two days. He has not noticed any change in the color. try ibuprofen which helps a little. Patient denies any blood mixed with urine, no recent history of sexual exposure (last sexual encounter 4 years ago), no urethral discharge or injury/ trauma, no painful ejaculations. Patient noted right scrotal swelling for 3 month which is gradually increase day by day. Patient [facility]. Denies any chest pain, SOB, cough, abdominal pain, diarrhea, constipation, penile discharge, heavy lifting, problem with ejaculation. He is not sexually active, last sexual encounter 4 years ago. 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 He was managed with IV fluids, antibiotics, pain medication. Blood culture and urine culture ordered. Ultrasound shows right large hydrocele, trace left hydrocele, 0.4 cm echogenic structure abutting right testicle, 0.4 cm epididymal head cyst. We will monitor CBC for infection. Lactic Acid 1.3, increased total bilirubin, total protein, no growth on blood culture. 04/27/25: Patient examined on bedside. CT done shows calcified granuloma left lung base atelectasis, scarring. Mild ascites. Mild fluid stranding and paracolic gutters. Left large hydrocele. Splenomegaly. We will rule out tuberculosis. Urology consulted, advised Brian to gravity, conservative management or hydrocelectomy outpatient. Urine culture positive for Gram- negative rods blood culture negative. His fever has subsided now. Scrotal pain and swelling present, associated urinary symptoms present. 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 HEENT: Denies changes in vision and hearing. Respiratory: Denies shortness of breath and cough Cardiovascular: No complaints. GI: No vomiting, nausea, diarrhea. : Scrotal swelling, pain, associated with burning micturition, increased frequency Musculoskeletal: Denies myalgias and joint pain Neurological: Denies dizziness, headache, vision or hearing problems Objective vital signs Vital Sign Date Time Temp Pulse Resp B/P (MAP) Pulse Ox O2 Delivery O2 Flow Rate FiO2 04/27/25 09:00 98.1 71 18 116/76 (89) 99 98.1 04/27/25 08:01 Room Air* 0 21 Total Intake and Output 04/26/25 04/26/25 04/27/25 15:00 23:00 07:00 Intake Total 50 ml 640 ml Output Total 1000 ml Balance 50 ml -360 ml medications Current Medications Medications Dose Ordered Sig/Josh Route Start Time Stop Time Status Last Admin Dose Admin Nitroglycerin 0.4 mg Q5MINP PRN SL 04/25/25 21:00 Morphine Sulfate 2 mg Q30M PRN IV 04/25/25 21:00 Acetaminophen 650 mg Q4HP PRN PO 04/26/25 00:00 04/27/25 09:48 650 MG Famotidine 40 mg DAILY PO 04/26/25 10:00 04/27/25 09:48 40 MG Ceftriaxone Sodium 50 ml @ 100 mls/hr DAILY@09 IV 04/26/25 09:00 04/27/25 09:47 100 MLS/HR Examination General examination- He is awake, alert, oriented. HEENT- PEERLA, no acute nasal discharge Cardiovascular- no abnormal heart sounds. Respiratory- lungs are clear to auscultation. Gastrointestinal- Nontender, nondistended Musculoskeletal- No acute joint swelling or tenderness or redness Extremity examination- no pitting edema. - asymmetrical scrotal swelling on right side. No penile discharge or mass seen. Skin color normal. Right testicle not palpable. Prehn sign negative. Left testicle soft. No lymph nodes palpable. Mild tenderness on posterior aspect of scrotum. No illumination on touch test. Neurological- Cranial nerves intact, no acute dysarthria or dysphagia NIKKI: Explained procedure to patient, performed with battery engineer Dr Aguilar, aftering obtaining the consent. No blood seen on gloves, no tenderness on palpation of prostate, no hemorrhoids. laboratory and microbiology Laboratory Tests 04/27/25 05:13 Test 04/27/25 05:13 Range/Units Serum Glucose 94 74-106 mg/dL Microbiology Date/Time Source Procedure Growth Status 04/25/25 14:38 Blood Blood Culture - Preliminary NO GROWTH AFTER 24 HOURS OF INCUBATION. Resulted 04/25/25 14:03 Voided Urine Urine Culture - Preliminary Resulted Problem List/Assessment/Plan Problem List/Assessment/Plan #Large right hydrocele #Infected hydrocele, possible #Testicular tumor, possible -Ultrasound testes shows large right-sided hydrocele with internal debris. Trace left hydrocele. 0.4 cm echogenic structure abutting the right testicle which may represent a testicular appendage with a lesion not excluded. 0.4 cm left epididymal head cyst. -Ordered Chlamydia, gonorrhoea testing -AFP, LDH ordered -Urology consulted: Brian to gravity. Conservative management or hydrocelectomy outpatient -Start Cold compress, Scrotal elevation #TB rule out -CT showed calcified granuloma in the left lung base along with mild ascites and scarring. -Ordered TB gold QuantiFERON. #Prostatitis ruled out -On NIKKI no tenderness on palpation of prostate. #Sepsis due to UTI possible #Leukocytosis -Tachycardia, tachypnea, fever on admission -Urine analysis showed turbid urine, increased WBC count, 2+ blood, few bacteria -Urine culture positive for Gram-negative rods. Continue IV ceftriaxone. -Oral Acetaminophen as needed for pain control #Thrombocytopenia #Alcoholic liver disease, possible #Cirrhosis, possible #Spleenomegaly -Splenic enlargement seen on CT scan. -High total bilirubin on lab -History of alcohol use, currently on rehab for last 2 months -Platelet count 60. No signs symptoms of active bleeding -Monitor CBC # Obesity -BMI 29.0 -Life style modification -Lipid profile GI prophylaxis: Pantoprazole 40 mg p.o. daily DVT prophylaxis: Patient is ambulating Goals of care discussions, more than 25 minute spent, full code status. Plan discussed with Dr. Keen Plan discussed with: Patient My Orders My Orders Orders - LOY MONTANEZ RESIDENT Procedure Category Date Status Time Chlamydia/Gc LAB 04/26/25 Logged Amplification 14:41 Regular Diet DIET 04/26/25 Transmitted Dinner Quantiferon-Tb Gold LAB 04/27/25 Logged 11:02 Date of Service: Apr 27, 2025 Billing Provider: CHRISTY LANE MD Common Visit Codes: [id number] INP/OBS CARE(HIGH) LOY MONTANEZ RESIDENT Apr 27, 2025 11:[address] MD May 01, 2025 01:09
[2025-04-27 13:00] VITALS: BP 142/80; PULSE 66; RESP 16; TEMP 97.9; O2SAT 98
[2025-04-27 16:48] VITALS: BP 112/78; PULSE 63; RESP 16; TEMP 98; O2SAT 99
[2025-04-27 21:00] VITALS: BP 110/76; PULSE 66; RESP 20; TEMP 76.8; O2SAT 100
[2025-04-28] VITALS (7 sets, daily range): BP systolic 95–129; BP diastolic 60–89; PULSE 60–75; RESP 18–20; TEMP 97.6–98.2; O2SAT 98–99
[2025-04-28 06:33] LABS: Hematocrit 43.4 % (41.0-53.0); Hemoglobin 14.3 g/dL (13.5-17.5); Mean Corpuscular Hemoglobin 30.0 pg (28.0-32.0); Mean Corpuscular Volume 91.4 fL (80.0-100.0); Nucleated Red Blood Cells % 0.2 %
[2025-04-28 06:47] LABS: Albumin 3.7 g/dL (3.2-4.8); Alkaline Phosphatase 102 U/L (46-116); Anion Gap 10 (5-15); BUN/Creatinine Ratio 15.0 (10.0-20.0); Blood Urea Nitrogen 12 mg/dL (9-23); Calcium 9.0 mg/dL (8.7-10.4); Carbon Dioxide 23 mmol/L (20-31); Glucose 97 mg/dL (74-106); Potassium 4.2 mmol/L (3.5-5.1); Sodium 140 mmol/L (136-145); Total Protein 7.5 g/dL (5.7-8.2)
[2025-04-28 06:48] LABS: Alanine Aminotransferase 9 U/L (7-40); Bilirubin, Total 0.7 mg/dL (0.2-1.0); Chloride 107 mmol/L (98-107)
[2025-04-28 10:04] LABS: Hepatitis B Surface Antigen Negative (Negative)
[2025-04-28 10:24] LABS: Hepatitis C Antibody Negative (Negative)
--- NOTE | 2025-04-28 14:42 | DVH ---
Procedure: CT CHEST WITHOUT CONTRAST Reason for study/Clinical History: eval parenchyma of lung and apparent granuloma Comparison Study: None TECHNIQUE: Multidetector CT of the chest was performed from the lung apices to the upper abdomen with out the use of intravenous contract. Axial, coronal and sagittal multiplanar reformats were performed . Radiation Dose Information: CT Dose: CTDI volume is 10.14 mGy. Dose-length product is 334.9 mGy*cm The dose indicators for CT are the volume Computed Tomography (CT) Dose Index (CTDIvol) and the Dose Length Product (DLP), and are measured in units of mGy and mGy-cm, respectively. These indicators are not patient dose, but values generated from the CT scanner acquisition factors. The report includes radiation exposure data for exposures received during this examination. FINDINGS: Lower neck: Unremarkable. Lungs: No focal consolidation. No suspicious pulmonary nodule. Dependent atelectasis. Heart/Vascular Structures: Cardiomegaly. Lymph Nodes: No adenopathy Pleura: No pleural effusion or significant pneumothorax. Musculoskeletal: No acute osseous abnormality. Degenerative changes of the spine. Soft tissues: Normal. Upper abdomen: Hepatomegaly. IMPRESSION: No acute intrathoracic abnormality. Radiation optimization: All CT scans at this facility use at least one of these dose optimization raj hniques: automated exposure control mA and/or kV adjustment per patient size (includes targeted exam s where dose is matched to clinical indication) or iterative reconstruction.
--- NOTE | 2025-04-28 15:46 | DVHPNRES ---
Progress Note Date Seen: Apr 28, 2025 Resident Creating Document: LOY MONTANEZ RESIDENT Has the PT tested + for MRSA If YES, has PT been informed?: No Medical Necessity Reason Pt with a Central, PICC or Fol: No Subjective Review of Systems Kirk Flowers is a 54-year-old male with no significant past medical history came to ED with the complaint of fever, weakness, right scrotal pain which worsened two days ago. Pain is 7/10 intensity, associated with burning, painful micturition, fever, 2-3 lb weight loss. Scrotal pain worsens while standing up and decreases with sitting. Associated increased frequency of micturition. The swelling in the scrotum started eight months ago and gradually increased in size. Since last one month he has been having on and off pain which has worsened since last two days. He has not noticed any change in the color. try ibuprofen which helps a little. Patient denies any blood mixed with urine, no recent history of sexual exposure (last sexual encounter 4 years ago), no urethral discharge or injury/ trauma, no painful ejaculations. Patient noted right scrotal swelling for 3 month which is gradually increase day by day. Patient currently [facility]. Denies any chest pain, SOB, cough, abdominal pain, diarrhea, constipation, penile discharge, heavy lifting, problem with ejaculation. He is not sexually active, last sexual encounter 4 years ago. 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 He was managed with IV fluids, antibiotics, pain medication. Blood culture and urine culture ordered. Ultrasound shows right large hydrocele, trace left hydrocele, 0.4 cm echogenic structure abutting right testicle, 0.4 cm epididymal head cyst. We will monitor CBC for infection. Lactic Acid 1.3, increased total bilirubin, total protein, no growth on blood culture. 04/27/25: Patient examined on bedside. CT done shows calcified granuloma left lung base atelectasis, scarring. Mild ascites. Mild fluid stranding and paracolic gutters. Left large hydrocele. Splenomegaly. We will rule out tuberculosis. Urology consulted, advised Brian to gravity, conservative management or hydrocelectomy outpatient. Urine culture positive for Gram- negative rods blood culture negative. His fever has subsided now. Scrotal pain and swelling present, associated urinary symptoms present. 04/28/25: He is complaining of some discomfort at the Brian site and mild headache. Labs shows neutrophil WNL now. Blood culture negative. Urine culture shows E coli growth, continue Abx. Hep B, hep C negative. We will do a CT chest without contrast to evaluate granuloma. We will give 1 dose of IM ceftriaxone to cover this gonorrhea. 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 HEENT: Denies changes in vision and hearing. Respiratory: Denies shortness of breath and cough Cardiovascular: No complaints. GI: No vomiting, nausea, diarrhea. : Scrotal swelling, pain, associated with burning micturition, increased frequency Musculoskeletal: Denies myalgias and joint pain Neurological: Denies dizziness, headache, vision or hearing problems Objective vital signs Vital Sign Date Time Temp Pulse Resp B/P (MAP) Pulse Ox O2 Delivery O2 Flow Rate FiO2 04/28/25 13:00 98.2 61 20 113/76 (88) 99 98.2 04/28/25 08:00 Room Air* 0 21 Total Intake and Output 04/27/25 04/27/25 04/28/25 15:00 23:00 07:00 Intake Total 955 ml 800 ml Output Total 2200 ml 2500 ml Balance -1245 ml -1700 ml medications Current Medications Medications Dose Ordered Sig/Josh Route Start Time Stop Time Status Last Admin Dose Admin Nitroglycerin 0.4 mg Q5MINP PRN SL 04/25/25 21:00 Morphine Sulfate 2 mg Q30M PRN IV 04/25/25 21:00 Acetaminophen 650 mg Q4HP PRN PO 04/26/25 00:00 04/28/25 08:44 650 MG Famotidine 40 mg DAILY PO 04/26/25 10:00 04/28/25 08:44 40 MG Ceftriaxone Sodium 50 ml @ 100 mls/hr DAILY@09 IV 04/26/25 09:00 04/28/25 08:45 100 MLS/HR Examination General examination- He is awake, alert, oriented. HEENT- PEERLA, no acute nasal discharge Cardiovascular- no abnormal heart sounds. Respiratory- lungs are clear to auscultation. Gastrointestinal- Nontender, nondistended Musculoskeletal- No acute joint swelling or tenderness or redness Extremity examination- no pitting edema. - Asymmetrical scrotal swelling on right side, size apparently unchanged from baseline. No penile discharge or mass seen. Skin color normal. No lymph nodes palpable. Neurological- Cranial nerves intact, no acute dysarthria or dysphagia laboratory and microbiology Laboratory Tests 04/28/25 06:07 Test 04/28/25 06:07 Range/Units Serum Glucose 97 74-106 mg/dL Microbiology Date/Time Source Procedure Growth Status 04/25/25 14:38 Blood Blood Culture - Preliminary NO GROWTH AFTER 72 HOURS OF INCUBATION. Resulted 04/25/25 14:03 Voided Urine Urine Culture - Final Escherichia coli Complete Problem List/Assessment/Plan Problem List/Assessment/Plan #Large right hydrocele #Infected hydrocele, possible #Testicular tumor, possible -Ultrasound testes shows large right-sided hydrocele with internal debris. Trace left hydrocele. 0.4 cm echogenic structure abutting the right testicle which may represent a testicular appendage with a lesion not excluded. 0.4 cm left epididymal head cyst. -Ordered Chlamydia, gonorrhoea testing. We can give IM ceftriaxone tomorrow for gonorrhea. -AFP, LDH ordered -Urology consulted: Brian to gravity. Conservative management or hydrocelectomy outpatient -Continue Cold compress, Scrotal elevation -Urine culture positive for E coli. #TB rule out -CT showed calcified granuloma in the left lung base along with mild ascites and scarring. -Ordered TB gold QuantiFERON. -CT chest to evaluate the granuloma #Prostatitis ruled out -On NIKKI no tenderness on palpation of prostate. #Sepsis due to UTI possible #Leukocytosis -Tachycardia, tachypnea, fever on admission -IV NS given -Blood culture negative -Urine analysis showed turbid urine, increased WBC count, 2+ blood, few bacteria -Urine culture positive for Gram-negative rods. Continue IV ceftriaxone. -Oral Acetaminophen as needed for pain control #Thrombocytopenia #Alcoholic liver disease, possible #Cirrhosis, possible #Spleenomegaly -Hepatomegaly -Increased T.bilirubin -Splenic enlargement seen on CT scan. -High total bilirubin on lab -History of alcohol use, currently on rehab for last 2 months -Platelet count 60. No signs symptoms of active bleeding -Monitor CBC # Obesity -BMI 29.0 -Life style modification -Lipid profile GI prophylaxis: Pantoprazole 40 mg p.o. daily DVT prophylaxis: Patient is ambulating Goals of care discussed with patient for more than 25 minute spent, full code status. Plan discussed with Dr. Keen Plan discussed with: Patient Date of Service: Apr 28, 2025 Billing Provider: CHRISTY LANE MD Common Visit Codes: [id number] INP/OBS CARE(HIGH) LOY MONTANEZ RESIDENT Apr 28, 2025 15:[address] MD May 01, 2025 00:04
[2025-04-29 00:59] VITALS: BP 130/82; PULSE 64; RESP 18; TEMP 98.2; O2SAT 100
[2025-04-29 05:00] VITALS: BP 127/84; PULSE 66; RESP 18; TEMP 97.8; O2SAT 100
[2025-04-29 05:17] LABS: Hematocrit 40.4 % (41.0-53.0); Hemoglobin 13.7 g/dL (13.5-17.5); Mean Corpuscular Hemoglobin 30.1 pg (28.0-32.0); Mean Corpuscular Volume 88.7 fL (80.0-100.0); Nucleated Red Blood Cells % 0.1 %
[2025-04-29 05:29] LABS: Albumin 3.6 g/dL (3.2-4.8); Alkaline Phosphatase 109 U/L (46-116); Anion Gap 9 (5-15); BUN/Creatinine Ratio 16.1 (10.0-20.0); Blood Urea Nitrogen 14 mg/dL (9-23); Calcium 9.7 mg/dL (8.7-10.4); Carbon Dioxide 27 mmol/L (20-31); Chloride 106 mmol/L (98-107); Glucose 99 mg/dL (74-106); Potassium 3.9 mmol/L (3.5-5.1); Sodium 142 mmol/L (136-145); Total Protein 7.3 g/dL (5.7-8.2)
[2025-04-29 05:30] LABS: Alanine Aminotransferase 9 U/L (7-40); Bilirubin, Total 0.6 mg/dL (0.2-1.0)
[2025-04-29 08:21] VITALS: BP 130/82; PULSE 72; RESP 18; TEMP 97.1; O2SAT 99
[2025-04-29 12:57] VITALS: BP 110/76; PULSE 62; RESP 18; TEMP 98.5; O2SAT 99
[2025-04-29] MEDS ORDERED: CIPR500T4 PO ×2 (15:13→16:32)
[2025-04-29] MEDS: cefTRIAXone SOD 500 MG VL IM ONE (15:15)
--- NOTE | 2025-04-29 15:30 | DVHDSRES ---
Discharge Summary Date of Admission Resident Creating Document: MARCELA ROSE RESIDENT Apr 25, 2025 at 20:57 Date of Discharge: Apr 29, 2025 Labs/Diagnostic Data: Laboratory Results Test 04/29/25 04:52 04/27/25 11:36 04/26/25 13:47 04/26/25 11:22 White Blood Count 4.7 10^3/uL (4.4-10.8) Red Blood Count 4.55 10^6/uL (4.5-5.90) Hemoglobin 13.7 g/dL (13.5-17.5) Hematocrit 40.4 % (41.0-53.0) Mean Corpuscular Volume 88.7 fL (80.0-100.0) Mean Corpuscular Hemoglobin 30.1 pg (28.0-32.0) Mean Corpuscular Hemoglobin Concent 34.0 g/dL (32.0-36.0) Red Cell Distribution Width 15.9 % (11.8-14.3) Platelet Count 79 10^3/uL (140-450) Mean Platelet Volume 7.5 fL (6.9-10.8) Neutrophils (%) (Auto) 55.9 % (37.0-80.0) Lymphocytes (%) (Auto) 29.3 % (10.0-50.0) Monocytes (%) (Auto) 9.5 % (0.0-12.0) Eosinophils (%) (Auto) 4.8 % (0.0-7.0) Basophils (%) (Auto) 0.5 % (0.0-2.0) Neutrophils # (Auto) 2.6 10 ^3/uL (1.6-8.6) Lymphocytes # (Auto) 1.4 10 ^3/uL (0.4-5.4) Monocytes # (Auto) 0.4 10 ^3/uL (0-1.3) Eosinophils # (Auto) 0.2 10 ^3/uL (0-0.8) Basophils # (Auto) 0 10 ^3/uL (0-0.2) Nucleated Red Blood Cells 0.1 % Sodium Level 142 mmol/L (136-145) Potassium Level 3.9 mmol/L (3.5-5.1) Chloride Level 106 mmol/L (98-107) Carbon Dioxide Level 27 mmol/L (20-31) Anion Gap 9 (5-15) Blood Urea Nitrogen 14 mg/dL (9-23) Creatinine 0.87 mg/dL (0.700-1.30) Glomerular Filtration Rate Calc 103 mL/min (>90) BUN/Creatinine Ratio 16.1 (10.0-20.0) Serum Glucose 99 mg/dL (74-106) Calcium Level 9.7 mg/dL (8.7-10.4) Total Bilirubin 0.6 mg/dL (0.2-1.0) Aspartate Amino Transferase (AST) 24 U/L (13-40) Alanine Aminotransferase (ALT) 9 U/L (7-40) Alkaline Phosphatase 109 U/L (46-116) Total Protein 7.3 g/dL (5.7-8.2) Albumin 3.6 g/dL (3.2-4.8) TB Test (QFT) Gold Plus Negative (Negative) TB Test (QFT) Nil 0.06 IU/mL (.) TB Test (QFT) Mitogen >10.00 IU/mL (.) TB Test (QFT) Antigen 1 0.05 IU/mL (.) TB Test (QFT) Antigen 2 0.06 IU/mL (.) TB Test (QFT) Criteria Comment (.) Miscellaneous Referred Test (Rm Tmp Sent to [facility] Direct Bilirubin 1.0 mg/dL (<0.3) Test 04/26/25 09:45 04/26/25 06:51 04/26/25 06:38 04/25/25 14:30 Tumor Marker Alpha Fetoprotein 5.7 ng/mL (0.0-8.4) Hemoglobin A1c 5.2 % A1C (<5.7) B-Type Natriuretic Peptide 9.82 pg/mL (0-100) Vitamin B12 Level 667 pg/mL (211-911) Vitamin D 25-Hydroxy 109.2 ng/mL (30.0-100) Folic Acid 18.99 ng/mL (>5.38) Thyroid Stimulating Hormone (TSH) 1.01 uIU/mL (0.55-4.78) Hepatitis B Surface Antigen Negative (Negative) Hepatitis C Antibody Negative (Negative) Triglycerides Level 75 mg/dL (< 150) Cholesterol Level 124 mg/dL (< 200) LDL Cholesterol 60 mg/dL (< 100) HDL Cholesterol 46 mg/dL (40-59) Platelet Estimate Decreased Anisocytosis (manual) Slight Lactic Acid Level 1.3 mmol/L (0.4-2.0) Test 04/25/25 14:03 Urine Color Light-yellow (Yellow) Urine Clarity Turbid (Clear) Urine pH 6.0 (5.0-9.0) Urine Specific [place] 1.010 (1.001-1.035) Urine Protein Negative (Negative) Urine Ketones Negative (Negative) Urine Blood 2+ /uL (Negative) Urine Nitrite Negative (Negative) Urine Bilirubin Negative (Negative) Urine Urobilinogen 2 mg/dL (Negative) Urine Leukocyte Esterase 3+ /uL (Negative) Urine RBC 14 /hpf (0 - 3) Urine Microscopic WBC 45 /HPF (0-3) Urine Squamous Epithelial Cells None seen /hpf (<5) Urine Amorphous Crystals Few /hpf (None Seen) Urine Bacteria Few /hpf (None Seen) Urine Glucose Normal mg/dL (Normal) Other Laboratory Tests 04/29/25 04:52 Brief Hx & Hospital Course: Elkin Saravia Kirk is a 54-year-old male with no significant past medical history came to ED with the complaint of fever, weakness, right scrotal pain which worsened two days ago. Pain is 7/10 intensity, associated with burning, painful micturition, fever, 2-3 lb weight loss. Scrotal pain worsens while standing up and decreases with sitting. Associated increased frequency of micturition. The swelling in the scrotum started eight months ago and gradually increased in size. Since last one month he has been having on and off pain which has worsened since last two days. He has not noticed any change in the color. try ibuprofen which helps a little. Patient denies any blood mixed with urine, no recent history of sexual exposure (last sexual encounter 4 years ago), no urethral discharge or injury/ trauma, no painful ejaculations. Patient noted right scrotal swelling for 3 month which is gradually increase day by day. [facility]. Denies any chest pain, SOB, cough, abdominal pain, diarrhea, constipation, penile discharge, heavy lifting, problem with ejaculation. He is not sexually active, last sexual encounter 4 years ago. 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 He was managed with IV fluids, antibiotics, pain medication. Blood culture and urine culture ordered. Ultrasound shows right large hydrocele, trace left hydrocele, 0.4 cm echogenic structure abutting right testicle, 0.4 cm epididymal head cyst. We will monitor CBC for infection. Lactic Acid 1.3, increased total bilirubin, total protein, no growth on blood culture. 04/27/25: Patient examined on bedside. CT done shows calcified granuloma left lung base atelectasis, scarring. Mild ascites. Mild fluid stranding and paracolic gutters. Left large hydrocele. Splenomegaly. We will rule out tuberculosis. Urology consulted, advised Brian to gravity, conservative management or hydrocelectomy outpatient. Urine culture positive for Gram- negative rods blood culture negative. His fever has subsided now. Scrotal pain and swelling present, associated urinary symptoms present. 04/28/25: He is complaining of some discomfort at the Brian site and mild headache. Labs shows neutrophil WNL now. Blood culture negative. Urine culture shows E coli growth, continue Abx. Hep B, hep C negative. We will do a CT chest without contrast to evaluate granuloma. We will give 1 dose of IM ceftriaxone to cover this gonorrhea. 04/29/25: the patient examined on bedside, patient reports feeling better today, denies fever, chills, nause, vomit, testicular pain or penile discharge. vital signs were reviewed. TB quatiferon reports negative. CT scan of chest report No acute intrathoracic abnormality. The patient will be discharge today. He will follow up with PCP in one week. 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 HEENT: Denies changes in vision and hearing. Respiratory: Denies shortness of breath and cough Cardiovascular: No complaints. GI: No vomiting, nausea, diarrhea. : Scrotal swelling, improvement of pain, no dysuria or frequency. Musculoskeletal: Denies myalgias and joint pain Neurological: Denies dizziness, headache, vision or hearing problems Physical exam General examination- He is awake, alert, oriented. HEENT- PEERLA, no acute nasal discharge Cardiovascular- no abnormal heart sounds. Respiratory- lungs are clear to auscultation. Gastrointestinal- Nontender, nondistended Musculoskeletal- No acute joint swelling or tenderness or redness Extremity examination- no pitting edema. - Asymmetrical scrotal swelling on right side, size apparently unchanged from baseline. No penile discharge or mass seen. Skin color normal. No lymph nodes palpable. Neurological- Cranial nerves intact, no acute dysarthria or dysphagia Assessment and Plan: #Large right hydrocele #Infected hydrocele, possible #Testicular tumor, possible -Ultrasound testes shows large right-sided hydrocele with internal debris. Trace left hydrocele. 0.4 cm echogenic structure abutting the right testicle which may represent a testicular appendage with a lesion not excluded. 0.4 cm left epididymal head cyst. -Ordered Chlamydia, gonorrhoea testing. We can give IM ceftriaxone tomorrow for gonorrhea. -AFP, LDH ordered -Urology consulted: Brian to gravity. Conservative management or hydrocelectomy outpatient -Continue Cold compress, Scrotal elevation -Urine culture positive for E coli. #TB ruled out -CT showed calcified granuloma in the left lung base along with mild ascites and scarring. -Ordered TB gold QuantiFERON. -CT chest to evaluate the granuloma: CT scan 04/28: no acute intrathoracic abnormality #Prostatitis ruled out -On NIKKI no tenderness on palpation of prostate. #Sepsis due to complicated UTI possible #Leukocytosis -Tachycardia, tachypnea, fever on admission -IV NS given -Blood culture negative -Urine analysis showed turbid urine, increased WBC count, 2+ blood, few bacteria -Urine culture positive for Gram-negative rods. Continue IV ceftriaxone. -Oral Acetaminophen as needed for pain control #Thrombocytopenia #Alcoholic liver disease, possible #Cirrhosis, possible #Spleenomegaly -Hepatomegaly -Increased T.bilirubin -Splenic enlargement seen on CT scan. -High total bilirubin on lab -History of alcohol use, currently on rehab for last 2 months -Platelet count 60. No signs symptoms of active bleeding -Monitor CBC # Obesity -BMI 29.0 -Life style modification -Lipid profile #Discharge home Goals of care discussed with patient for more than 25 minute spent, full code status. Plan discussed with Dr. Keen Plan discussed with: Patient Condition at Discharge: Stable Final Diagnosis/Problems List Discharge Disposition: Home SNF Discharge Will this Physician continue t: No Discharge Instruct/Medications Diet: Regular Activity: No Restrictions, As Tolerated Follow Up/Referral: F/U with PCP in one week Medications: -Ciprofloxacin 500 mg po qd for 10 days Scheduled Ciprofloxacin Hcl (Ciprofloxacin Hcl), 500 MG PO DAILY Discharge Statement: "Patient was advised to return to the ER or call 911 if any headaches, dizziness, shortness of breath, chest pain, abdominal pain, bleeding, fevers, or worsening of medical condition. Patient was counseled about treatment plan, medications, possible side effects, patientverbalized understanding. All questions were answered to the best of my ability. This discharge took greater then 30 minutes in planning, reviewing documentation, counseling the patient, and discussing with other team members." ASSESSMENT ASSESSMENT Assessment Date of Service: Apr 29, 2025 Billing Provider: CHRISTY LANE MD Common Visit Codes: 39626-QEA/OBS DISCH DAY >30min MARCELA ROSE RESIDENT Apr 29, 2025 15:[address] MD May 01, 2025 21:42
[2025-04-29 15:55] VITALS: TEMP 36.9
== END 2025-04-29 16:10 | disposition home or self-care (01) | DRG 720 ==
LOC: ER 13:41 → OVERFLOW 20:57 → EAST 04-26 15:36
PROVIDERS: ADMIT Student in an Organized Health Care Education/Training Program; ATTEND Student in an Organized Health Care Education/Training Program
DX: A41.9 Sepsis, unspecified organism (principal); D69.6 Thrombocytopenia, unspecified; E66.9 Obesity, unspecified; N32.81 Overactive bladder; N30.00 Acute cystitis without hematuria; N43.1 Infected hydrocele; F10.20 Alcohol dependence, uncomplicated; D49.59 Neoplasm of unspecified behavior of other genitourinary organ; Z68.29 Body mass index [BMI] 29.0-29.9, adult; Z87.442 Personal history of urinary calculi; Z79.899 Other long term (current) drug therapy; Y90.9 Presence of alcohol in blood, level not specified
CPT/HCPCS: 36415; 71045; 71250; 74176; 76870; 80048; 80053; 80061; 80076; 81001; 82105; 82306; 82607; 82746; 83036; 83605; 83880; 84443; 85025; 86803; 87040; 87086; 87088; 87186; 87340; 96365; G0378; J0696